=== PATIENT | male | born 1990 | race Caucasian/White ===

== ENCOUNTER 2017-07-04 12:25 | Emergency (ER) | payer MEDICAID ==
[~2017-07-04] VITALS: Ht 177.8 cm; Wt 68.1 kg
[~2017-07-04 12:25] MED LIST: BLOO-1585 TP; CLIN-5 PO; IBUP-1984 PO; LANC-571 TOP; NOVLG SQ
[2017-07-04] MEDS ORDERED: insulin regular, human 10 units/0.1 ml syringe IV ONE (12:40)
[2017-07-04] MEDS ORDERED: normal saline 1000ML IV soln IVB ONE (12:40)
[2017-07-04 12:55] LABS: BASOPHILS % (AUTO) 0.4 % (0-1); EOSINOPHILS # (AUTO) 0.1 X10'3 (0-0.9); EOSINOPHILS % (AUTO) 0.5 % (0-6); HEMATOCRIT 43.2 % (42.0-52.0); HEMOGLOBIN 14.9 g/dl (14.0-17.9); LYMPHOCYTES # (AUTO) 1.7 X10'3 (1.1-4.8); LYMPHOCYTES % (AUTO) 14.1 % (21-51); MEAN CORPUSCULAR HEMOGLOBIN 30.6 PG (27.0-31.0); MEAN CORPUSCULAR HGB CONC 34.5 % (33.0-36.5); MEAN CORPUSCULAR VOLUME 88.7 FL (78-98); MEAN PLATELET VOLUME 7.3 FL (7.4-10.4); MONOCYTES # (AUTO) 0.3 X10'3 (0-0.9); MONOCYTES % (AUTO) 2.7 % (2-12); NEUTROPHILS # (AUTO) 9.8 X10'3 (1.8-7.7); NEUTROPHILS % (AUTO) 82.3 % (42-75); PLATELET COUNT 453 X10'3 (140-440); RED BLOOD COUNT 4.87 X10'6 (4.70-6.10); RED CELL DISTRIBUTION WIDTH 12.9 % (11.5-14.5); WHITE BLOOD COUNT 11.9 X10'3 (4.5-11.0)
[2017-07-04 13:12] LABS: ALANINE AMINOTRANSFERASE 24 U/L (12-78); ALBUMIN 3.1 G/DL (3.4-5.0); ALBUMIN/GLOBULIN RATIO 0.6 (1.1-1.5); ALKALINE PHOSPHATASE 150 IU/L (46-116); ANION GAP 12 (8-16); ASPARTATE AMINO TRANSFERASE 16 U/L (10-37); BILIRUBIN,TOTAL 0.7 MG/DL (0.1-1.0); BLOOD UREA NITROGEN 17 MG/DL (7-18); BUN/CREATININE RATIO 19.8 (5.4-32.0); CALCIUM 9.3 MG/DL (8.5-10.1); CHLORIDE 96 MMOL/L (99-107); CREATININE 0.86 MG/DL (0.60-1.10); GLUCOSE 418 MG/DL (70-104); POTASSIUM 4.7 MMOL/L (3.5-5.1); SODIUM 133 MMOL/L (135-145); TOTAL CARBON DIOXIDE 25.1 MMOL/L (24-32); TOTAL PROTEIN 8.2 G/DL (6.4-8.2); eGFR > 90 ML/MIN
[2017-07-04] MEDS ORDERED: CEPH-571 PO (13:20)
[2017-07-04 13:25] LABS: PLATELET ESTIMATE INCREASED; TOTAL CELLS COUNTED 100
[2017-07-04 13:32] VITALS: BP 112/74
== END 2017-07-04 13:34 ==
LOC: ER 12:25
DX: E11.65 Type 2 diabetes mellitus with hyperglycemia (principal); H66.91 Otitis media, unspecified, right ear; I10 Essential (primary) hypertension; E78.00 Pure hypercholesterolemia, unspecified; F15.10 Other stimulant abuse, uncomplicated; Z88.0 Allergy status to penicillin; Z79.4 Long term (current) use of insulin
CPT/HCPCS: 36415; 80053; 82948; 85025; 96361; 96374; 99284; J1815; J7030

== ENCOUNTER 2018-08-10 11:21 | Inpatient (IN) | payer MEDICAID ==
[~2018-08-10] VITALS: Ht 177.8 cm; Wt 75.0 kg
[~2018-08-10 11:21] MED LIST changes: +CEPH-571 PO
[2018-08-10] MEDS ORDERED: normal saline 1000ML IV soln IVB ONE (12:10)
[2018-08-10 12:36] LABS: BASOPHILS # (AUTO) 0.2 X10'3 (0-0.2); BASOPHILS % (AUTO) 1.2 % (0-1); EOSINOPHILS % (AUTO) 0 % (0-6); HEMATOCRIT 50.1 % (42.0-52.0); HEMOGLOBIN 16.5 g/dl (14.0-17.9); LYMPHOCYTES # (AUTO) 0.6 X10'3 (1.1-4.8); LYMPHOCYTES % (AUTO) 3.7 % (21-51); MEAN CORPUSCULAR HEMOGLOBIN 30.4 PG (27.0-31.0); MEAN CORPUSCULAR HGB CONC 32.9 g/dL (33.0-36.5); MEAN CORPUSCULAR VOLUME 92.2 FL (78-98); MEAN PLATELET VOLUME 8.1 FL (7.4-10.4); MONOCYTES # (AUTO) 0.2 X10'3 (0-0.9); MONOCYTES % (AUTO) 1.2 % (2-12); NEUTROPHILS % (AUTO) 93.9 % (42-75); PLATELET COUNT 321 X10'3 (140-440); RED BLOOD COUNT 5.43 X10'6 (4.70-6.10); RED CELL DISTRIBUTION WIDTH 12.2 % (11.5-14.5)
[2018-08-10 12:36] LABS: ABG HCO3 8.4 mmol/L (22.0-26.0); ABG OXYGEN SATURATION 97.3 % (95-98); ABG PCO2 (T) 19.1 mmHg (35.0-48.0); ABG PH (T) 7.262 (7.350-7.450); ABG PO2 (T) 116.6 mmHg (83-108); ALLEN'S TEST Positive; FCOHb 0.7 % (0.5-1.5); FMetHb 0.2 % (0.3-1.12); FO2Hb 96.4 % (94-100)
[2018-08-10 13:02] LABS: CLARITY,URINE CLEAR (Clear); COLOR,URINE STRAW (Yellow); GLUCOSE, URINE >=1000 mg/dl (Neg); KETONES,URINE >=80 mg/dl (Neg); LEUKOCYTE ESTERASE ,URINE NEGATIVE (Neg); NITRITES, URINE NEGATIVE (Neg); OCCULT BLOOD,URINE MODERATE (Neg); PH,URINE 5.5 (4.8-8.0); PROTEIN,URINE 30 mg/dl (Neg); UROBILINOGEN,URINE 0.2 E.U/dL (0.2-1.0)
[2018-08-10 13:04] LABS: UA COLLECTION TYPE CLN CATCH MIDSTREAM
[2018-08-10 13:10] LABS: BACTERIA,URINE FEW /HPF (Neg); HYALINE CASTS 0-3 /LPF (NEGATIVE); RBC,URINE 0-2 /HPF (0-2); SQUAMOUS EPITHELIAL CELL,UR FEW /LPF (FEW); WBC,URINE 0-4 /HPF (0-4)
[2018-08-10 13:11] LABS: ALANINE AMINOTRANSFERASE 31 U/L (12-78); ALBUMIN 4.8 G/DL (3.4-5.0); ALBUMIN/GLOBULIN RATIO 1.1 (1.1-1.5); ALKALINE PHOSPHATASE 142 IU/L (46-116); ANION GAP 27 (8-16); ASPARTATE AMINO TRANSFERASE 17 U/L (10-37); BILIRUBIN,TOTAL 1.6 MG/DL (0.1-1.0); BLOOD UREA NITROGEN 33 MG/DL (7-18); CALCIUM 9.5 MG/DL (8.5-10.1); CHLORIDE 93 MMOL/L (99-107); CREATININE 1.32 MG/DL (0.60-1.10); MAGNESIUM 2.3 MG/DL (1.5-2.4); PHOSPHORUS 6.6 MG/DL (2.3-4.5); POTASSIUM 5.5 MMOL/L (3.5-5.1); SODIUM 135 MMOL/L (135-145); TOTAL CARBON DIOXIDE 15.1 MMOL/L (24-32); TOTAL PROTEIN 9.2 G/DL (6.4-8.2); eGFR 65 ML/MIN
[2018-08-10 13:13] LABS: URINE AMPHETAMINE SCREEN POSITIVE (Neg); URINE BARBITUATE SCREEN NEGATIVE (Neg); URINE BENZODIAZEPINES SCREEN NEGATIVE (Neg); URINE CANNABINOID SCREEN POSITIVE (Neg); URINE COCAINE SCREEN NEGATIVE (Neg); URINE METHADONE SCREEN NEGATIVE (Neg); URINE OPIATE SCREEN NEGATIVE (Neg); URINE PHENCYCLIDINE SCREEN NEGATIVE (Neg)
[2018-08-10 13:18] LABS: GLUCOSE 569 MG/DL (70-104)
[2018-08-10] MEDS ORDERED: insulin regular, DKA only 100 UNIT in normal saline 100ml IV soln 99 ML IV SCH ×4 (13:24→18:49)
[2018-08-10] MEDS ORDERED: potassium Cl 40MEQ/NS 500ml 500 ML IV PRN ×4 (13:25→18:50)
[2018-08-10] MEDS ORDERED: sodium phosphate inj. 30 MMOL in dextrose 5%-water 250 ML IV PRN ×2 (13:25→18:50)
[2018-08-10] MEDS ORDERED: sodium phosphate inj. 15 MMOL in dextrose 5%-water 150 ML IV PRN ×2 (13:25→18:50)
[2018-08-10] MEDS ORDERED: Neutra Phos packet PO PRN ×2 (13:25→18:50)
[2018-08-10] MEDS ORDERED: potassium Cl 20 mEq SR tablet PO PRN ×4 (13:25→18:50)
[2018-08-10] MEDS ORDERED: insulin regular, human vial - multi-dose IV PRN (13:25)
[2018-08-10] MEDS ORDERED: insulin regular, human 10 units/0.1 ml syringe IV PRN ×2 (14:21→18:50)
[2018-08-10] MEDS: normal saline 1000ml 1,000 ML IV SCH ×6 (14:33→22:49)
[2018-08-10] MEDS ORDERED: INSU100V40 (15:56)
[2018-08-10 16:49] LABS: ALBUMIN 3.9 G/DL (3.4-5.0); ANION GAP 23 (8-16); BLOOD UREA NITROGEN 30 MG/DL (7-18); BUN/CREATININE RATIO 25.9 (5.4-32.0); CALCIUM 8.6 MG/DL (8.5-10.1); CHLORIDE 98 MMOL/L (99-107); CREATININE 1.16 MG/DL (0.60-1.10); GLUCOSE 285 MG/DL (70-104); PHOSPHORUS 4.7 MG/DL (2.3-4.5); POTASSIUM 4.1 MMOL/L (3.5-5.1); SODIUM 137 MMOL/L (135-145); TOTAL CARBON DIOXIDE 15.7 MMOL/L (24-32); eGFR 75 ML/MIN
[2018-08-10] MEDS: potassium CL 20mEq in D5-1/2NS 1,000 ML IV PRN (17:45)
--- NOTE | 2018-08-10 18:24 | NUR ---
HOSPITALIST AT BEDSIDE INTERVIEWING PT.
[2018-08-10 18:39] LABS: ALBUMIN 3.6 G/DL (3.4-5.0); ANION GAP 19 (8-16); BLOOD UREA NITROGEN 29 MG/DL (7-18); BUN/CREATININE RATIO 26.4 (5.4-32.0); CALCIUM 8.3 MG/DL (8.5-10.1); CHLORIDE 100 MMOL/L (99-107); GLUCOSE 215 MG/DL (70-104); POTASSIUM 4.3 MMOL/L (3.5-5.1); SODIUM 136 MMOL/L (135-145); TOTAL CARBON DIOXIDE 17.3 MMOL/L (24-32); eGFR 80 ML/MIN
[2018-08-10] MEDS ORDERED: potassium CL 20mEq in D5-1/2NS 1,000 ML IV PRN (18:49)
[2018-08-10] MEDS ORDERED: sodium bicarbonate (8.4%) inj. 50 MEQ in dextrose 5% water 500ml 250 ML IV PRN (18:49)
[2018-08-10] MEDS ORDERED: sodium bicarbonate (8.4%) inj. 100 MEQ in dextrose 5% water 500ml 500 ML IV PRN (18:49)
[2018-08-10] MEDS: nicotine 14mg patch - 24hr TD SCH (19:25)
[2018-08-10] MEDS ORDERED: ibuprofen tablet 400 MG TABLET PO PRN (19:55)
[2018-08-10 22:35] LABS: PHOSPHORUS 2.8 MG/DL (2.3-4.5)
--- NOTE | 2018-08-10 22:46 | NUR ---
D51/2 NS WITH 20MEQ KCL INCREASED TO 200CC/HR.
[2018-08-10 22:58] LABS: HEMOGLOBIN A1C 10.6 % (4.5-6.2)
--- NOTE | 2018-08-10 23:36 | NUR ---
INCREASED D51/2 NS WITH 20KCL TO 250CC/HR PER PROTOCOL.
--- NOTE | 2018-08-11 00:35 | NUR ---
D51/2NS WITH 20KCL INCREASED TO 300CC/HR.
--- NOTE | 2018-08-11 00:49 | NUR ---
DR ALBRIGHT NOTIFIED OF IV FLUIDS AT 300CC/HR, OK TO CHECK LABS SCHEDULED AT 0300.
[2018-08-11] MEDS: potassium CL 20mEq in D5-1/2NS 1,000 ML IV PRN ×2 (01:02→10:07)
--- NOTE | 2018-08-11 02:32 | NUR ---
IV FLUDS INCREASED PER PROTOCOL.
[2018-08-11] MEDS: normal saline 1000ml 1,000 ML IV SCH ×4 (02:47→17:13)
[2018-08-11 03:29] LABS: ALBUMIN 3.1 G/DL (3.4-5.0); ANION GAP 11 (8-16); BLOOD UREA NITROGEN 18 MG/DL (7-18); CALCIUM 7.7 MG/DL (8.5-10.1); CHLORIDE 108 MMOL/L (99-107); CREATININE 0.82 MG/DL (0.60-1.10); GLUCOSE 122 MG/DL (70-104); PHOSPHORUS 2.3 MG/DL (2.3-4.5); POTASSIUM 3.8 MMOL/L (3.5-5.1); SODIUM 137 MMOL/L (135-145); TOTAL CARBON DIOXIDE 18.1 MMOL/L (24-32); eGFR > 90 ML/MIN
[2018-08-11 03:34] LABS: BASOPHILS # (AUTO) 0.1 X10'3 (0-0.2); BASOPHILS % (AUTO) 0.7 % (0-1); EOSINOPHILS % (AUTO) 0.2 % (0-6); HEMATOCRIT 40.1 % (42.0-52.0); HEMOGLOBIN 13.6 g/dl (14.0-17.9); LYMPHOCYTES # (AUTO) 2.2 X10'3 (1.1-4.8); LYMPHOCYTES % (AUTO) 10.4 % (21-51); MEAN PLATELET VOLUME 7.4 FL (7.4-10.4); MONOCYTES # (AUTO) 1.1 X10'3 (0-0.9); MONOCYTES % (AUTO) 5.1 % (2-12); NEUTROPHILS # (AUTO) 17.3 X10'3 (1.8-7.7); NEUTROPHILS % (AUTO) 83.6 % (42-75); PLATELET COUNT 308 X10'3 (140-440); RED CELL DISTRIBUTION WIDTH 12.2 % (11.5-14.5); WHITE BLOOD COUNT 20.7 X10'3 (4.5-11.0)
--- NOTE | 2018-08-11 03:38 | NUR ---
SPOKE TO DR ALBRIGHT REGARDING RECENT LAB VALUES, TO KEEP FLUIDS AND INSULIN AT CURRENT RATES, REPEAT BMP AT 0800.
[2018-08-11 05:00] VITALS: BP 108/79
--- NOTE | 2018-08-11 05:44 | NUR ---
Received pateint from jennifer BORGES from ER. Pt blood glucose is 92 on 400 ml d5 kcl [address] harrington notified, He wanted the insulin drip turned down from 5u/hr to 4u/hr.
--- NOTE | 2018-08-11 06:11 | NUR ---
Patient in room PCU 3016. I have received report from KATERINA Ocampo and had the opportunity to ask questions and assume patient care.
[2018-08-11 07:00] VITALS: BP 101/60
[2018-08-11] MEDS ORDERED: K and/or MAG REPLACEMENT MC SCH (08:00)
[2018-08-11] MEDS: nicotine 14mg patch - 24hr TD SCH ×2 (08:05→19:25)
[2018-08-11] MEDS: K and/or MAG REPLACEMENT MC SCH (08:05)
[2018-08-11 08:14] LABS: ANION GAP 10 (8-16); BLOOD UREA NITROGEN 13 MG/DL (7-18); BUN/CREATININE RATIO 15.5 (5.4-32.0); CALCIUM 7.8 MG/DL (8.5-10.1); CHLORIDE 110 MMOL/L (99-107); CREATININE 0.84 MG/DL (0.60-1.10); GLUCOSE 157 MG/DL (70-104); POTASSIUM 3.9 MMOL/L (3.5-5.1); SODIUM 140 MMOL/L (135-145); TOTAL CARBON DIOXIDE 19.8 MMOL/L (24-32); eGFR > 90 ML/MIN
[2018-08-11] MEDS ORDERED: dextrose 50%-water 50ml dispensing syringe IV PRN ×2 (08:40)
[2018-08-11] MEDS ORDERED: glucagon, human recombinant 1mg kit SUBCUT PRN (08:40)
[2018-08-11] MEDS ORDERED: dextrose ORAL solution 15 GM/59 ML bottle PO PRN ×2 (08:40)
[2018-08-11] MEDS ORDERED: MESSAGE TO PHARMACY PO ONE (08:40)
--- NOTE | 2018-08-11 08:44 | NUR ---
PAGER ID: [phone] MESSAGE: [id number] pt Jairo last labs: glucose 157, anion gap 10, and CO2 19.8. Do you want to continue on DKA until CO2 > 20 or start hyperglycemia protocol now and feed + give short acting? - Stephanie [id number] Addendum: 08/11/18 at 1530 by Stephanie Woodson RN Per Dr. Looney stop DKA and start hyperglycemic protocol.
[2018-08-11 11:00] VITALS: BP 113/68
[2018-08-11] MEDS: insulin Lispro (HumaLOG) vial - multi-dose SQ SCH ×3 (11:26→19:09)
[2018-08-11] MEDS ORDERED: insulin glargine (Lantus) pen - multi-dose SQ ONE (13:05)
[2018-08-11 15:00] VITALS: BP 106/65
--- NOTE | 2018-08-11 15:13 | NUR ---
DM Consult: A1C 10.6. Pt admit w/ DKA hx homeless and positive for meth on admit. Per EMR pt reports losing his glucometer so has been taking basal and guessing sliding scale doses. Pt has hx non-compliance T1DM and has been encouraged to attend CDE course prior admits. Pt refused verbal DM ed during RD visit; RD did encourage pt to attend CDE course but he said he was "heading out of town on Sunday." Written DM ed and RD contact information left at bedside. PO 75-100% meals. GLU up to 244 from 80 this am following lunch; RN reports pt had bag of sour patch kids at bedside. No GI symptoms and off insulin drip on hyperglycemic protocol. Will continue to monitor. Rec: 1. continue carb controlled diet 2. wt per rx Addendum: 08/11/18 at [address] Amended: Links added.
--- NOTE | 2018-08-11 15:29 | NUR ---
PAGER ID: [phone] MESSAGE: [id number] pt Jairo. Would you like any maintenance fluids for him now that he is off DKA protocol? - Stephanie [phone]
--- NOTE | 2018-08-11 18:25 | NUR ---
Patient in room PCU 3016. I have received report from Stephanie BORGES and had the opportunity to ask questions and assume patient care.
--- NOTE | 2018-08-11 18:26 | NUR ---
Two RN Skin Assessment has been completed at with tSephanie RN,all skin assessed,with the following findings none noted
--- NOTE | 2018-08-11 18:26 | NUR ---
Two RN skin check completed with Carolin Sullivan RN. No wounds or skin issues noted.
--- NOTE | 2018-08-11 18:27 | NUR ---
Problems reprioritized. Patient report given, questions answered & plan of care reviewed with KATERINA Coe.
[2018-08-11 19:00] VITALS: BP 110/71
--- NOTE | 2018-08-11 19:27 | NUR ---
Nicotine patch not removed. It has only been on 11 hrs.
[2018-08-11] MEDS ORDERED: insulin glargine (Lantus) pen - multi-dose SQ SCH (21:00)
[2018-08-11 23:00] VITALS: BP 115/73
[2018-08-12] MEDS: normal saline 1000ml 1,000 ML IV SCH ×2 (00:45→10:43)
[2018-08-12 02:00] VITALS: BP 121/50
--- NOTE | 2018-08-12 06:20 | NUR ---
Patient in room [facility] 3013. I have received report from Hannah BORGES and had the opportunity to ask questions and assume patient care. Addendum: 08/12/18 at 0625 by Jenn Sullivan RN Problems reprioritized. Patient report given, questions answered & plan of care reviewed with Hannah BORGES.
--- NOTE | 2018-08-12 06:29 | NUR ---
Patient in room PCU 3013. I have received report from Ailyn BORGES and had the opportunity to ask questions and assume patient care.
[2018-08-12 06:43] LABS: BASOPHILS % (AUTO) 0.4 % (0-1); EOSINOPHILS # (AUTO) 0.1 X10'3 (0-0.9); EOSINOPHILS % (AUTO) 1.8 % (0-6); HEMATOCRIT 38.8 % (42.0-52.0); HEMOGLOBIN 13.4 g/dl (14.0-17.9); LYMPHOCYTES % (AUTO) 39.7 % (21-51); MEAN CORPUSCULAR HGB CONC 34.6 g/dL (33.0-36.5); MEAN CORPUSCULAR VOLUME 92.7 FL (78-98); MEAN PLATELET VOLUME 7.8 FL (7.4-10.4); MONOCYTES # (AUTO) 0.6 X10'3 (0-0.9); MONOCYTES % (AUTO) 7.5 % (2-12); NEUTROPHILS # (AUTO) 3.9 X10'3 (1.8-7.7); NEUTROPHILS % (AUTO) 50.6 % (42-75); PLATELET COUNT 231 X10'3 (140-440); RED BLOOD COUNT 4.19 X10'6 (4.70-6.10); RED CELL DISTRIBUTION WIDTH 12.4 % (11.5-14.5); WHITE BLOOD COUNT 7.6 X10'3 (4.5-11.0)
[2018-08-12 07:00] VITALS: BP 117/78
[2018-08-12] MEDS: K and/or MAG REPLACEMENT MC SCH (08:00)
[2018-08-12] MEDS: insulin Lispro (HumaLOG) vial - multi-dose SQ SCH ×2 (09:14→13:40)
[2018-08-12] MEDS: nicotine 14mg patch - 24hr TD SCH (09:15)
[2018-08-12] MEDS ORDERED: INSU100V13 SQ (09:16)
[2018-08-12] MEDS ORDERED: LANTUS SQ (09:16)
[2018-08-12] MEDS ORDERED: SYRI-641 (09:16)
[2018-08-12] MEDS ORDERED: LANC-571 TOP (09:16)
--- NOTE | 2018-08-12 12:46 | NUR ---
PAGER ID: [phone] MESSAGE: Ramiro [id number], Jairo. Do you want him to go home on a sliding scale for his insulin? If so what level. Hannah [phone]
--- NOTE | 2018-08-12 14:09 | NUR ---
Pt discharged at 1400, with all belongings. Pt reviewed discharged instructions and education prior to signing, packet was sent with patient. Pt was walked down by RN and discharged home by transit vehicle.
[2018-08-13] MEDS ORDERED: FLU VACC QUAD 2018(5 YR UP)/PF 60 MCG/0.5 ML SYRINGE IM ONE (10:00)
--- NOTE | 2018-08-13 12:22 | NUR ---
PAGER ID: [phone] MESSAGE: Pt. Gill, who discharged yesterday called because has no glucometer to monitor his blood glucose. Please adviseHannah [phone]
--- NOTE | 2018-08-13 13:25 | NUR ---
Pt called requesting a glucometer. Dr Bateman gave verbal order to call in glucometer to patients pharmacy. Called in to shelia Arndt per order.
== END 2018-08-12 13:55 | disposition home or self-care (01) | DRG 420 ==
LOC: ER 11:22 → ED HOLD 19:04 → PCU 3S 08-11 05:00
PROVIDERS: ADMIT Hospitalist; ATTEND Family Medicine
DX: E10.10 Type 1 diabetes mellitus with ketoacidosis without coma (principal); D72.829 Elevated white blood cell count, unspecified; E78.00 Pure hypercholesterolemia, unspecified; F15.10 Other stimulant abuse, uncomplicated; F17.210 Nicotine dependence, cigarettes, uncomplicated; I10 Essential (primary) hypertension; Z60.9 Problem related to social environment, unspecified; Z73.3 Stress, not elsewhere classified; Z59.0 Homelessness; Z79.4 Long term (current) use of insulin; Z88.0 Allergy status to penicillin; Z79.899 Other long term (current) drug therapy; Z71.6 Tobacco abuse counseling; Z71.51 Drug abuse counseling and surveillance of drug abuser
CPT/HCPCS: 36415; 36600; 71046; 80048; 80053; 80305; 81001; 82009; 82803; 82948; 83036; 83735; 84100; 85018; 85025; 87070; 96361; 96374; 99285; G0378; J1815; J7030